=== PATIENT | female | born 1960 | race Caucasian/White ===

== ENCOUNTER → 2019-05-27 | Outpatient (CLI) | payer BC | LOC: MC.RAD 11:52 | DX: Z12.31 Encounter for screening mammogram for malignant neoplasm of breast (principal); N63.20 Unspecified lump in the left breast, unspecified quadrant; Z98.890 Other specified postprocedural states ==

== ENCOUNTER 2021-06-24 18:18 | Emergency (ER) | payer BC ==
[~2021-06-24] VITALS: Ht 165.1 cm; Wt 67.3 kg
[2021-06-24 18:24] VITALS: TEMP 98.9
[2021-06-24] MEDS ORDERED: NORCO 325 MG-51 TAB PO (18:55)
[2021-06-24 19:05] VITALS: BP 139/77; PULSE 77
== END 2021-06-24 19:06 | disposition home or self-care (01) ==
LOC: COL.ER 18:18
DX: T20.26XA Burn of second degree of forehead and cheek, initial encounter (principal); T20.23XA Burn of second degree of chin, initial encounter; T20.27XA Burn of second degree of neck, initial encounter; X01.0XXA Exposure to flames in uncontrolled fire, not in building or structure, initial encounter

== ENCOUNTER → 2021-09-19 | Outpatient (CLI) | payer BC ==
[~2021-09-19] MED LIST: NORCO 325 MG-51 TAB PO
== END ==
LOC: MC.RAD 13:16
DX: Z12.31 Encounter for screening mammogram for malignant neoplasm of breast (principal)

== ENCOUNTER → 2023-05-28 | Outpatient (CLI) | payer BC | LOC: MC.RAD 10:49 | DX: Z12.31 Encounter for screening mammogram for malignant neoplasm of breast (principal) ==